=== PATIENT | female | born 1950 | race Caucasian/White ===

== ENCOUNTER 2024-09-06 13:08 | Outpatient (AMB) | payer MEDICARE, SELFPAY ==
--- NOTE | 2024-09-06 13:20 | A.OFFPC_ITS ---
Vital Signs 09/06/24 13:25 09/06/24 13:31 Height 4 ft 11.84 in Weight 113 lb BMI 22.2 BP 180/84 H 144/86 H Blood Pressure Location Rt brachial Rt brachial Position Sitting Sitting Respiration 12 Pulse 64 Pulse Source Pulse Oximeter Temp 98.6 F Temp Source Oral Pulse Oximetry (%) 98 Oxygen Delivery Method Room Air Intake Visit Reasons: Est. Care / Pt. need's a referral for a cardo. Intake Note: New patient visit Galvanizer Required: No Allergies No Known Allergies Allergy (Verified 09/06/24 13:23) Tobacco use date assessed: 09/06/24 Fall risk assessment: No Falls in past year Last assessed Fall Risk: 09/06/24 Dental Screening Dental Screen Date: 09/06/24 Did you have a dental visit in the last 12 months?: Yes Did you have a dental problem in the last 6 months where you did not have access to dental care?: No Was dental information given to patient?: Patient has dentist HPI HPI Comments History of Present Illness Details The patient is a 74 year old female with past medical history of hypertension, osteoporosis, OA s/p hip replacement, diverticulitis, UTI [facility] care. transfer from [facility] CV: on losartan 100mg daily, amlodipine. 144/86. Denies chest pain. Osteoporosis -on supplements. declines medication Colonoscopy 2023 Mammo 10/2023 Says DXA last month 07/2024 ROS CONSTITUTIONAL: Denies weight loss, fever and chills. HEENT: Denies changes in vision and hearing. RESPIRATORY: Denies SOB and cough. CV: Denies palpitations and CP GI: Denies abdominal pain, nausea, vomiting and diarrhea. : Denies dysuria and urinary frequency. MSK: Denies new myalgia and joint pain. SKIN: Denies rash and pruritus. NEUROLOGICAL: Denies headache PSYCHIATRIC: Denies recent changes in mood. PHYSICAL EXAM: GENERAL: Alert and oriented x 3. NAD EYES: EOMI. Anicteric. HENT: Moist mucous membranes. No scleral icterus. No cervical lymphadenopathy. LUNGS: Clear to auscultation bilaterally. CARDIOVASCULAR: Regular rate and rhythm. No murmur. No JVD. ABDOMEN: Soft, non-tender +bs EXTREMITIES: No edema. Non-tender. SKIN: No rashes or lesions. Warm. NEUROLOGIC: No focal neurological deficits. CN II-XII grossly intact PSYCHIATRIC: Cooperative. Appropriate mood and affect [facility] Surgical History H/O hernia repair History of hip replacement Family History Mother HTN (hypertension) Maternal Grandmother HTN (hypertension) Brother Alcohol abuse Substance abuse Social History Housing: House Alcohol intake: current Patient Tobacco Use Status: Never used Tobacco e-Cigarette/Vaping Use: Never Used service: No Current occupational status: retired Cognitive needs: No Hearing needs: No Vision needs: No Questionnaire PHQ-9 Over the last 2 weeks, how often have you been bothered by any of the following problems? 1. Little interest or pleasure in doing things: not at all 2. Feeling down, depressed, or hopeless: not at all 3. Trouble falling or staying asleep, or sleeping too much: not at all 4. Feeling tired or having little energy: not at all 5. Poor appetite or overeating: not at all 6. Feeling bad about yourself - or that you are a failure or have let yourself or your family down: not at all 7. Trouble concentrating on things, such as reading the newspaper or watching television: not at all 8. Moving or speaking so slowly that other people could have noticed. Or the opposite - being so fidgety or restless that you have been moving around a lot more than usual: not at all 9. Thoughts that you would be better off or of hurting yourself in some way: not at all Total score: 0 Depression Screening Interpretation: Negative Depression Screening Done: Yes 28058 - PHQ-9 Billing: Yes Source: Developed by Drs. Pedro Stephen, Vinita Sanchez, Thony Mccray and colleagues, with an educational disha from [employer]. Thrive Questionnaire Date Thrive assessed: 09/05/24 I am a: Patient What is your living situation today?: I have a steady place to live Within the past 12 months, did the food you bought not last and you didn't have the money to get more?: Never true Within the past 12 months, did you worry whether your food would run out before you got money to buy more?: Never true Do you have trouble paying for medicines?: No Do you have trouble getting transportation to medical appointments?: No Do you have trouble paying your heating and electricity bill?: No Do you have trouble taking care of your child, family member or friend?: No Do you have trouble with day-to-day activities such as bathing, preparing meals, shopping, managing finances, etc.?: No Are you currently unemployed and looking for a job?: No Are you interested in more education?: No Please select the resources that you would like help with: None Currently or been in a relationship where the following occur: I choose not to answer THRIVE Score: 0 AUDIT C Alcohol Use Questionnaire (AUDIT-C) 1. How often do you have a drink containing alcohol?: Monthly or less 2. How many drinks containing alcohol do you have on a typical day when you are drinking?: 1 or 2 3. How often do you have six or more drinks on one occasion?: Never Total Score: 1 NANDA-7 AMB Questionnaire NANDA-7 Date NANDA - 7 assessed: 09/06/24 Feeling nervous, anxious, or on edge: 0 = Not at all Not being able to stop or control worryin = Not at all Worrying too much about different things: 0 = Not at all Trouble relaxin = Not at all Being so restless that it is hard to sit still: 0 = Not at all Becoming easily annoyed or irritable: 0 = Not at all Feeling afraid as if something awful might happen: 0 = Not at all Total NANDA-7 score (0-4 normal; 5-9 mild; 10-14 moderate; 15-21 severe): 0 Source: Developed by Drs. Pedro Stephen, Vinita Sanchez, Thony Mccray and colleagues, with an educational disha from [employer]. NANDA-7 Assessment Billing NANDA-7 Assessment Tool: NANDA-7 Assessment 52315 Physical exam (Primary Care) Vital Signs: Last Vital Signs Temp 98.6 F 09/06/24 13:25 Pulse 64 09/06/24 13:25 Resp 12 09/06/24 13:25 BP 144/86 H 09/06/24 13:31 Pulse Ox 98 09/06/24 13:25 Oxygen Delivery Method Room Air 09/06/24 13:25 BMI result Body Mass Index 22.2 Tobacco/Smoking Status: Tobacco use Status Tobacco use date assessed 09/06/24 09/06/24 13:34 Patient Tobacco Use Status Never used Tobacco 09/06/24 13:41 e-Cigarette/Vaping Use Never Used 09/06/24 13:34 PHQ-9: PHQ-9 Score PHQ-9: Total score 0 09/06/24 13:41 Depression Screening Interpretation: Negative Thrive Assessment: Date of Thrive Assessment Date Thrive assessed 09/05/24 09/06/24 13:23 Currently or been in a relationship where the following occur: I choose not to answer Coding Level of Care Code New Pt Level 4 (14666) Complex EM visit Add On G2211 Diagnoses Primary hypertension I10 Hypertension type: primary hypertension Osteoporosis, unspecified osteoporosis type, unspecified pathological fracture presence M81.0 Osteoporosis type: unspecified Presence of current pathological fracture: unspecified History of hip replacement, unspecified laterality Z96.649 Laterality: unspecified laterality Additional Codes NANDA-7 Assessment Billing - NANDA-7 Assessment Tool: NANDA-7 Assessment 32645 ([id number]) PHQ-9 - 46771 - PHQ-9 Billing: Yes ([id number]) Assessment & Plan Assessment & Plan (1) Hypertension: Code(s): I10 - Essential (primary) hypertension Category: Medical Qualifiers: Hypertension type: primary hypertension Qualified Code(s): I10 - Essential (primary) hypertension (2) Osteoporosis: Code(s): M81.0 - Age-related osteoporosis without current pathological fracture Category: Medical Qualifiers: Osteoporosis type: unspecified Presence of current pathological fracture: unspecified Qualified Code(s): M81.0 - Age-related osteoporosis without current pathological fracture (3) History of hip replacement: Code(s): Z96.649 - Presence of unspecified artificial hip joint Category: Surgical Qualifiers: Laterality: unspecified laterality Qualified Code(s): Z96.649 - Presence of unspecified artificial hip joint Plan 74 year old to establish care Past medical, surgical, social reviewed Labs ordered Upcoming mammogram HTN-controlled home readings Orders: Orders MM screening mammo BI Today Z12.31 - Encounter for screening mammogram for malignant neoplasm of breast Complete Blood Count Auto Diff 6 Months I10 - Essential (primary) hypertension, M81.0 - Age-related osteoporosis without current pathological fracture, Z13.0 - Encounter for screening for diseases of the blood and blood-forming organs and certain disorders involving the immune mechanism, Z96.649 - Presence of unspecified artificial hip joint Comprehensive Met. Panel 6 Months I10 - Essential (primary) hypertension, M81.0 - Age-related osteoporosis without current pathological fracture, Z13.0 - Encounter for screening for diseases of the blood and blood-forming organs and certain disorders involving the immune mechanism, Z96.649 - Presence of unspecified artificial hip joint Lipid Panel 6 Months I10 - Essential (primary) hypertension, M81.0 - Age- related osteoporosis without current pathological fracture, Z13.0 - Encounter for screening for diseases of the blood and blood-forming organs and certain disorders involving the immune mechanism, Z96.649 - Presence of unspecified artificial hip joint TSH reflex Free T4 6 Months I10 - Essential (primary) hypertension, M81.0 - Age-related osteoporosis without current pathological fracture, Z13.0 - Encounter for screening for diseases of the blood and blood-forming organs and certain disorders involving the immune mechanism, Z96.649 - Presence of unspecified artificial hip joint Hemoglobin A1c 6 Months I10 - Essential (primary) hypertension, M81.0 - Age- related osteoporosis without current pathological fracture, Z13.0 - Encounter for screening for diseases of the blood and blood-forming organs and certain disorders involving the immune mechanism, Z96.649 - Presence of unspecified artificial hip joint Vitamin D 25-OH (D2 and D3) 6 Months I10 - Essential (primary) hypertension, M81.0 - Age-related osteoporosis without current pathological fracture, Z13.0 - Encounter for screening for diseases of the blood and blood-forming organs and certain disorders involving the immune mechanism, Z96.649 - Presence of unspecified artificial hip joint Medications: New amlodipine 2.5 mg PO DAILY 90 tabs 3RF amlodipine 2.5 mg PO DAILY 90 tabs 3RF losartan 100 mg PO DAILY 90 tabs 3RF
[2024-09-06 13:25] VITALS: BP 180/84; PULSE 64; RESP 12; TEMP 37; O2SAT 98; BMI 22.2
[2024-09-06 13:31] VITALS: BP 144/86
--- OUTSIDE RECORDS SUMMARY | 2024-09-06 14:13 | XMS_ITS | Clinical Summary ---
Author Organization [address] Address [address] [place] [phone] Phone Care Team Providers Care [facility] Name Role Phone Marielos Ch MD Primary Care Provider [phone] Allergies No known active allergies Medications amLODIPine (NORVASC) 2.5 mg tablet Take 1 Tablet by mouth daily. 4 Active MULTIVITAMIN ORAL Take by mouth. [id number] T C-VIT D OR Active collagen, hydrolysate, bovine, (collagen, hydr, bovine,, bulk,) 100 % powder 1 Scoop by Does not apply route daily. Active digestive enzymes capsule Take 1 Tablet by mouth 2 times daily. Active green tea leaf extract (GREEN TEA ORAL) None Entered Active losartan (COZAAR) 100 mg tablet Take 1 Tablet by mouth daily. 4 Active magnesium glycinate (Mag Glycinate) 100 mg tablet Take 1 Tablet by mouth at bedtime. 4 Active vit C/zinc citrate/elderbe rry (ELDERBERRY IMMUNE HEALTH ORAL) Misc Natural Products (Elderberry Immune Complex) Chew Tab Take 2 Tablets by mouth daily. Active Lacto 51/B.animal,bif id/inulin (FORTIFY PROBIOTIC ORAL) Probiotic Product (Fortify Probiotic Womens) CAPSULE DELAYED RELEASE Take 1 Capsule by mouth daily. Active thyroid, pork, bulk, 100 % FCI powder Thyroid 0.23 % Powder 1 Capsule by Does not apply route daily. Active Active Problems Problem Noted Date Diagnosed Date Fluttering heart 07/05/2024 Primary osteoarthritis of right hip 03/10/2024 Subclinical hypothyroidism 07/06/2023 White coat syndrome with diagnosis of hypertensi on 12/31/2021 Aneurysm of basilar artery (CMS/HCC V24) 019 Overview (02/01/2024): 3 mm, very small Essential hypertension 09/12/[address] scan, sinus 09/21/2011 Seasonal allergies 09/16/2011 Osteoporosis 08/14/2008 Encounters Date Type Department Care Team Description 07/12/2024 Telephone [facility] Cardiology [facility] [address] [place] [id number] Jessenia Iniguez MA Clearance letter for surgery 07/08/2024 8:50 AM EDT Office Visit [facility] [address] [place] [address] [place] [address] Ronn Hung MD Encounter for pre-operative cardiovascular clearance; HTN (hypertension); Fluttering heart 06/23/2024 Telephone [facility] [address] [place] [address] Kyle Woodard PA 06/22/2024 Telephone [facility] [address] [place] [address] Kyle Woodard PA Referral (Received Urgent paper referral - June) from Last 3 Months Immunizations Name Administration Dates Next Due Hepatitis A Adult (Havrix; V aqta) 19yo and older 06/12/2003 Hepatitis B (Seeuclv-A-Kvnxi , Recombivax HB-Adult) 19yo and older 12/14/2003,07/17/2003,06/12/2003 Influenza trivalent, 0.5mL ( Fluad) 65yo and older 02/18/2021 Pfizer SARS-CoV-2 COVID-19, mRNA, LNP-S, preservative free 03/05/2021 Pneumococcal conjugate 13 va lent (Prevnar 13, PCV13) 2mo and older 02/09/2020 Pneumococcal conjugate 20 va lent (Prevnar 20, PCV 20) 2mo and older 07/06/2023 Td Tetanus diptheria (Tdvax) 7yo and older 07/12,06/12/2003 Surgical History Surgery Date Site/Laterality Comments COLONOSCOPY 06/11/00 PROCEDURE: HISTORICAL COLONOSCOPY; COMMENT: WNL COLONOSCOPY 02/20/2012 PROCEDURE: [facility] COLONOSCOPY FLX DX W/COLLJ SPEC WHEN PFRMD; COMMENT: normal ESOPHAGOGASTRODUODENOSCOPY 02/20/2012 PROCEDURE: WV ESOPHAGOGASTRODUODENOSCOPY TRANSORAL DIAGNOSTIC; COMMENT: normal SINUS SURGERY 09/2012 PROCEDURE: [facility] UNLISTED PROCEDURE ACCESSORY SINUSES; COMMENT: deviated septum repair & sinus cleanout HERNIA REPAIR 09/05/2021 PROCEDURE: [facility] REPAIR FIRST ABDOMINAL WALL HERNIA Medical History Medical History Date Comments Osteoporosis DX:Osteoporosis Hypertension DX:Hypertension Seasonal allergies 09/16/2011 DX:Seasonal a llergies Syncope and collapse Sigmoid diverticulitis Family History Medical History Relation Name Comments Alcohol/Drug Brother 1 Lung cancer Brother 1 Alcohol/Drug Brother 2 Alcohol/Drug Brother 3 No Known Problems Brother 4 No Known Problems Brother 5 Other cancer Father prostate Arthritis Mother Hypertension Mother Other: ca rectal Sister 1 Coronary artery disease Sister 2 Sleep apnea Sister 2 No Known Problems Son 1 No Known Problems Son 2 Breast cancer Neg Hx Colon cancer Neg Hx Ovarian cancer Neg Hx Uterine cancer Neg Hx Relation Name Status Comments Brother 1 Brother 2 Brother 3 Brother 4 Alive Brother 5 Alive Father (Age 46) cancer - T ESTICULAR - LUNG Maternal Grandfather Maternal Grandmother (Age 90's) htn Mother Alive arthritis, dive rticulitis,HTN,S/P TAHBSO - ? [place] Paternal Grandfather Paternal Grandmother Sister 1 Alive Sister 2 Alive Son 1 Alive Son 2 Alive Social History Tobacco Use Types Packs/Day Years Used Date Smoking Tobacco: Never Smokeless Tobacco: Never Tobacco Cessation:Counseling Given: Not Answered Alcohol Use Standard Drinks/Week Comments Yes 0 (1 standard drink = 0.6 oz pur e alcohol) Comments Unknown Sex and Gender Information Value Date Recorded Sex Assigned at Not on file Legal Sex Female 10:32 AM EST Gender Identity Not on file Sexual Orientation Not on file Obstetrics History Last Filed Vital Signs Vital Sign Reading Time Taken Comments Blood Pressure 140/88 07/08/2024 8:47 AM EDT Pulse 56 07/08/2024 8:47 AM EDT Temperature - - Respiratory Rate 16 05/09/2024 9:50 AM EST Oxygen Saturation 99% 07/08/2024 8:47 AM EDT Inhaled Oxygen Concentration - - Weight 51.7 kg (114 lb) 07/08/2024 8:47 AM EDT Height 149.9 cm (4' 11 ) 07/08/2024 8:47 AM EDT Body Mass Index 23.03 07/08/2024 8:47 AM EDT Plan of Treatment Upcoming Encounters Date Type Department Care Team (Late st Contact Info) Description 11/18/2024 10:00 AM EDT Appointment Radiology Department [address] [phone] Health Maintenance Due Date Last Done Comments Zoster Vaccines (1 of 2) 2000 Falls Risk Assessment 02/15/2022 Social Influencers of Health Screening 02/15/2022 COVID-19 Vaccine ( season) 2023 03/05/2021, 07/17/2020, 06/27/2020 Depression Screening 07/05/2024 07/06/2023 Hypertension/CHF/CAD Annual BMP Blood Test 07/05/2024 07/06/2023, 07/06/2023 Medicare Annual Wellness Visit 07/05/2024 07/06/2023 DTaP,Tdap,and Td Vaccines (3 - Td or Tdap) 07/12/2024 07/12/2014, 06/12/2003 Influenza Vaccine (#1) 2024 02/18/2021 RSV Immunization Adult Patients (1 - 1-dose 75+ series) 2025 Breast Cancer Screening 11/05/2025 11/06/19 24, 11/06/2023, 08/06/2022, Additional history exists Cholesterol Screening (Lipid Panel) 05/17/2026 05/17/2021 Osteoporosis Screening (Bone Density Screening) 07/08/2032 07/08/2022, 05/07/2017 Colorectal Cancer Screening: Colonoscopy 05/24/2033 05/25/2023 Hepatitis A Vaccines Aged Out 06/12/2003 No long er eligible based on patient's age to complete this topic Hepatitis B Vaccines Completed 12/14/2003, 07/17/2003, 06/12/2003 Hepatitis C Screening Completed 07/12/2014 Pneumococcal Vaccine: 50+ Years Completed 07/06/2023, 02/09/2020 HIB Vaccines Aged Out No longer eligi ble based on patient's age to complete this topic HPV Vaccines Aged Out No longer eligi ble based on patient's age to complete this topic IPV Vaccines Aged Out No longer eligi ble based on patient's age to complete this topic MMR Vaccines Aged Out No longer eligi ble based on patient's age to complete this topic Meningococcal ACWY Vaccine Aged Out N o longer eligible based on patient's age to complete this topic Meningococcal B Vaccine Aged Out No l onger eligible based on patient's age to complete this topic RSV Immunization Patients Under 20 months Aged Out No longer eligible based on patient's age to complete this topic Varicella Vaccines Aged Out No longer eligible based on patient's age to complete this topic Procedures Procedure Name Priority Date/Time Associated Diagnosis Comments ECG 12-LEAD Routine 07/08/2024 8:52 AM EDT Encounter for pre-operative cardiovascular clearance SCREENING MAMMOGRAPHY BI 2-VIEW BREAST INC CAD Routine 11/06/2023 8:23 AM EDT Encounter for screening mammogram for malignant neoplasm of breast DEPRESSION SCREENING Routine 07/06/2023 ANNUAL BMP BLOOD TEST Routine 07/06/2023 COLONOSCOPY Routine 05/25/2023 DXA BONE DENSITY STUDY 1+ SITS AXIAL SKEL Routine 07/08/2022 11:02 AM EDT Encounter for screening for osteoporosis LIPID PANEL Routine 05/17/2021 HEPATITIS C SCREENING Routine 07/12/2014 from Last 3 Months or Most Recently Relevant to Health Maintenance Results * ECG 12 lead (07/08/2024 8:52 AM EDT) Ventricular Rate ECG 56 BPM GEMUSE Atrial Rate 56 BPM GEMUSE P-R Interval 156 ms GEMUSE QRS Duration 90 ms GEMUSE Q-T Interval 438 ms GEMUSE QTc 422 ms GEMUSE P Wave [place] 69 degrees GEMUSE R [place] 64 degrees GEMUSE T [place] 20 degrees GEMUSE ECG Interpretation Sinus bradycardia Otherwise normal ECG When compared with ECG of 29-AUG-2021 10:50, No significant change was found Confirmed by RONN HUNG ([id number]) on 07/08/2024 9:21:42 AM GEMUSE 07/08/2024 8:52 AM EDT 07/08/2024 9:21 AM EDT us Ronn Hung MD ECG ORDERABLES Final Result GEMUSE * SCREENING MAMMOGRAPHY BI 2-VIEW BREAST INC CAD (11/06/2023 8:23 AM EDT) Anatomical Region Laterality Modality Radiographic Bianca ging 08/06/2022 10:3 4 AM EDT Narrative 11/06/2023 1:51 PM EDT This is a summary report. The complete report is available in the patient's medical record. If you cannot access the medical record, please contact the sending organization for a detailed fax or copy. Study: SCREENING MAMMOGRAPHY BI 2-VIEW BREAST INC CAD Technique: Bilateral full-field digital screening mammography is obtained and read in conjunction with computer aided detection. Tomosynthesis as well as 2D C-View imaging were obtained. Comparison: Comparison made to multiple priors, most recent August 06, 2022, and most remote March 31, 2014. Breast composition: There are scattered areas of fibroglandular density. Bilateral breasts: No significant masses, suspicious calcifications or other abnormalities are seen in either breast. IMPRESSION: Impression: Bilateral breasts: Negative, no specific mammographic evidence of malignancy. Normal interval follow-up is recommended in 12 months. BI-RADS: Category 1: Negative [facility] [address] [place] [phone] Procedure Note Angel Barnes MD - 12/23/2023 This is a summary report. The complete report is available in thepatient's medical record. If you cannot access the medical record, pleasecontact the sending organization for a detailed fax or copy. Study: SCREENING MAMMOGRAPHY BI 2-VIEW BREAST INC CAD Technique: Bilateral full-field digital screening mammography is obtainedand read in conjunction with computer aided detection. Tomosynthesis aswell as 2D C-View imaging were obtained. Comparison: Comparison made to multiple priors, most recent August 06, 2022,and most remote March 31, 2014. Breast composition: There are scattered areas of fibroglandular density. Bilateral breasts: No significant masses, suspicious calcifications orother abnormalities are seen in either breast. IMPRESSION: Impression: Bilateral breasts: Negative, no specific mammographic evidence ofmalignancy. Normal interval follow-up is recommended in 12 months. BI-RADS: Category 1: Negative [address] [id number] [phone] Sherita Hung DO IMG XR PROCEDURES Final Result * Annual BMP Blood Test (07/06/2023) Pathologist [facility] Annual BMP Blood Test Abstracted Result [facility] Provider [place] HEALTH MAINTENANCE Final Result * Depression Screening (07/06/2023) [facility] Depression Screening Abstracted [facility] Provider HEALTH MAINTENANCE Final Result * Colonoscopy (05/25/2023) [facility] Colonoscopy Abstracted, no interpretation Anatomical Region Laterality Modality Other [facility] Provider HEALTH MAINTENANCE Final Result * DXA BONE DENSITY STUDY 1+ SITS AXIAL SKEL (07/08/2022 11:02 AM EDT) Anatomical Region Laterality Modality Bone Densitometr y 12/31/2021 11:1 2 AM EDT Narrative 07/08/2022 7:26 PM EDT Clinical history: menopausal/postmenopausal disorder Scans of the lumbar spine and hips were performed on a [employer] fan beam bone densitometer. Bone mineral density measurements and associated T and Z scores respectively are as follows: Lumbar Spine: L1-L4 BMD: 0.857 g/cm2 T-Score: -1.7 Z-Score: 0.5 Compared with the prior study dated 05/07/2017, the BMD reading has decreased which is statistically significant Left Proximal Femur: Neck BMD: 0.745 g/cm2 T-Score: -0.9 Z-Score: 1.0 Total BMD: 0.892 g/cm2 T-Score: -0.4 Z-Score: 1.2 Compared with the prior study the mean BMD reading in the total left hip has decreased which is statistically significant Compared with standards for the young adult, lowest measured bone density places the patient in the W.H.O. osteopenic range. FRAX 10 year probability of major osteoporotic fracture: 8.4% FRAX 10 year probability of hip fracture: 0.9% Population: [place] () IMPRESSION: IMPRESSION: Osteopenia. The NOF guidelines recommend that FDA approved medical therapies be considered in postmenopausal women and men age >50 years with a: i. Hip or vertebral (clinical or morphometric) fracture ii. T score of < -2.5 at the spine or hip iii. 10 year fracture probability by FRAX of >3% for hip fracture, or >20% for major osteoporotic fracture PLEASE NOTE: W.H.O. classification is based on lowest measured density at the spine, femoral neck, or total hip.This classification has prognostic significance when applied to post menopausal women and older men. 1) The World Health Organization defines low BMD as follows: T-score Normal at or > -1 Osteopenia < -1 and > -2.5 Osteoporosis at or < -2.5 without fractures Established osteoporosis < -2.5 with fractures Procedure Note Fabrice Vaca MD - 04/14/2023 Clinical history: menopausal/postmenopausal disorder Scans of the lumbar spine and hips were performed on a [employer] beam bone densitometer. Bone mineral density measurements and associated T and Z scoresrespectively are as follows: Lumbar Spine: L1-L4 BMD: 0.857 g/cm2 T-Score: -1.7 Z-Score: 0.5 Compared with the prior study dated 05/07/2017, the BMD reading hasdecreased which is statistically significant Left Proximal Femur: Neck BMD: 0.745 g/cm2 T-Score: -0.9 Z-Score: 1.0 Total BMD: 0.892 g/cm2 T-Score: -0.4 Z-Score: 1.2 Compared with the prior study the mean BMD reading in the total left hiphas decreased which is statistically significant Compared with standards for the young adult, lowest measured bone densityplaces the patient in the W.H.O. osteopenic range. FRAX 10 year probability of major osteoporotic fracture: 8.4% FRAX 10 year probability of hip fracture: 0.9% Population: [place] () IMPRESSION: IMPRESSION: Osteopenia. The NOF guidelines recommend that FDA approved medical therapies beconsidered in postmenopausal women and men age >50 years with a: i. Hip or vertebral (clinical or morphometric) fracture ii. T score of < -2.5 at the spine or hip iii. 10 year fracture probability by FRAX of >3% for hip fracture, or >20%for major osteoporotic fracture PLEASE NOTE: W.H.O. classification is based on lowest measured density at the spine,femoral neck, or total hip.This classification has prognostic significance when applied to postmenopausal women and older men. 1) The World Health Organization defines low BMD as follows: T-score Normal at or > -1 Osteopenia < -1 and > -2.5 Osteoporosis at or < -2.5 withoutfractures Established osteoporosis < -2.5 with fractures Jasmina SENA IMAnnette DXA PROCEDURES Fi nal Result * (ABNORMAL) Lipid panel (05/17/2021) [facility] LDL/HDL Ratio 4 0 - 4 Triglycerides 165(A) 0 - 150 mg/dL Cholesterol 257(A) 0 - 200 mg/dL HDL 67 >=40 mg/dL LDL Cholesterol 157(A) 0 - 100 mg/dL Blood Venous blood specimen / Unknown Historical Provider LAB BLOOD ORDERABLES Isis l Result * Hepatitis C Screening (07/12/2014) [facility] Hepatitis C Screening Abstracted us Historical Provider HEALTH MAINTENANCE Final Result from Last 3 Months or Most Recently Relevant to Health Maintenance Insurance [facility] MEDICARE Care Teams [facility] Pastor Relationship Specialty Start Date End Date Marielos Ch MD [address] [place] [id number] PCP - General Internal Medicine 05/09/24
== END 2024-09-06 13:58 | disposition home or self-care (01) ==
LOC: HO.HMCFM 13:09
PROVIDERS: PCP Internal Medicine; Visit Provider Internal Medicine
DX: I10 Essential (primary) hypertension (principal); M81.0 Age-related osteoporosis without current pathological fracture; Z96.649 Presence of unspecified artificial hip joint

== ENCOUNTER → 2024-09-06 13:08 | Outpatient (BNVA) | payer MEDICARE, SELFPAY | PROVIDERS: PCP Internal Medicine; Visit Provider Internal Medicine | DX: I10 Essential (primary) hypertension (principal); M81.0 Age-related osteoporosis without current pathological fracture; Z79.899 Other long term (current) drug therapy; Z96.649 Presence of unspecified artificial hip joint; Z13.31 Encounter for screening for depression; Z13.30 Encounter for screening examination for mental health and behavioral disorders, unspecified | CPT/HCPCS: 96127; 99202 ==